=== PATIENT | male | born 1975 | race Two or more races ===

== ENCOUNTER 2017-04-11 17:53 | Emergency (ER) | payer BC ==
[~2017-04-11] VITALS: Ht 170.2 cm; Wt 69.9 kg
[2017-04-11 19:00] LABS: HEMATOCRIT 43.4 % (38.0-50.0); HEMOGLOBIN 15.2 G/DL (12.5-16.6); MCH 30.8 PG (29.0-34.0); PLATELET COUNT 161 K/uL (156-360); RBC DIS.WIDTH-SD 41.7 % (39-53); RED BLOOD COUNT 4.93 M/uL (4.00-5.50); WHITE BLOOD COUNT 10.6 K/uL (4.1-10.2)
[2017-04-11 19:11] LABS: CHLORIDE 108 mEq/L (99-109); POTASSIUM 4.1 mEq/L (3.7-5.4); SODIUM 141 mEq/L (136-147)
[2017-04-11 19:12] LABS: GLUCOSE 103 mg/dL (70-99)
[2017-04-11 19:16] LABS: CREATININE 0.9 mg/dL (0.6-1.3)
[2017-04-11 19:17] LABS: UREA NITROGEN (BUN) 10 mg/dL (9-23)
[2017-04-11 19:25] LABS: TROP-I INTERPRETATION NEGATIVE; TROPONIN-I < 0.01 ng/mL (0.0-0.30)
[2017-04-11 19:34] LABS: GFR ESTIMATE (CALCULATED) > 59 mL/min/ (58.99-99999)
[2017-04-11 21:36] LABS: TROP-I INTERPRETATION NEGATIVE; TROPONIN-I < 0.01 ng/mL (0.0-0.30)
[2017-04-11 22:00] VITALS: BP 130/80
== END 2017-04-11 22:33 | disposition home or self-care (01) ==
LOC: EME 17:53
PROVIDERS: Emergency Medicine
DX: R07.9 Chest pain, unspecified (principal); R00.1 Bradycardia, unspecified; I10 Essential (primary) hypertension
CPT/HCPCS: 71046; 80048; 84484; 85027; 93005; 99281; 99284